=== PATIENT | female | born 1960 | race African-American/Black ===

== ENCOUNTER → 2017-02-02 | Outpatient (CLI) | payer BC ==
--- NOTE | 2017-02-02 16:37 | RADRPT ---
PROCEDURE: Left knee radiographs. CLINICAL INDICATION: Left knee pain. TECHNIQUE: Four views. Weight bearing. Frontal, lateral, oblique, and patellar view. COMPARISON: No prior studies are available for comparison. FINDINGS: There is no fracture or dislocation. The soft tissues are normal. There are degenerative changes with osteophytes arising from all 3 joint compartment margins. There is medial joint compartment narrowing, subarticular sclerosis, and mild deformity. There is no lytic or blastic lesion. There is no radiopaque foreign body. IMPRESSION: 1. Moderate to severe degenerative changes of the left knee. 2. No acute abnormality. RPTAT: QQ .Nando Woods MD, MD Date Time Electronically viewed and signed by .Nando Woods MD, on 02/02/2017 16:37 .R/
== END | disposition home or self-care (01) ==
LOC: HKI 14:26
PROVIDERS: ATTEND Orthopaedic Surgery
DX: M25.562 Pain in left knee (principal); M17.12 Unilateral primary osteoarthritis, left knee
CPT/HCPCS: 73564; G0463

== ENCOUNTER → 2017-02-18 | Outpatient (CLI) | payer BC | END | disposition home or self-care (01) | LOC: HKI 08:54 | PROVIDERS: ATTEND Orthopaedic Surgery | DX: M25.562 Pain in left knee (principal); S82.135A Nondisplaced fracture of medial condyle of left tibia, initial encounter for closed fracture | CPT/HCPCS: G0463 ==

== ENCOUNTER → 2017-03-18 | Outpatient (CLI) | payer BC ==
--- NOTE | 2017-03-18 10:20 | RADRPT ---
PROCEDURE: XR left knee. CLINICAL INDICATION: Knee pain TECHNIQUE: AP weightbearing, PA weightbearing, lateral weightbearing and sunrise views are availab le for review. COMPARISON: 02/02/2017 FINDINGS: There is moderate to severe osteoarthrosis involving the medial tibial femoral compartment and moder ate osteoarthrosis involving the lateral tibial femoral compartment and the patellofemoral compartme nt. This is associated with joint space narrowing, subchondral sclerosis and osteophytosis. There is otherwise normal mineralization, architecture and alignment. No fractures are identified. No osseous lesions are identified. The soft tissues are unremarkable. IMPRESSION: Moderate to severe osteoarthrosis involving the medial tibial femoral compartment and moderate osteo arthrosis involving the lateral tibial femoral compartment and the patellofemoral compartment. RPTAT: HGDB .Jonathan Rebollar MD, Date Time Electronically viewed and signed by .Jonathan Rebollar MD, on 03/18/2017 10:19 .B/
== END | disposition home or self-care (01) ==
LOC: HKI 09:17
PROVIDERS: ATTEND Orthopaedic Surgery
DX: M25.562 Pain in left knee (principal); S82.135A Nondisplaced fracture of medial condyle of left tibia, initial encounter for closed fracture
CPT/HCPCS: 73564; G0463

== ENCOUNTER → 2017-04-15 | Outpatient (CLI) | payer BC ==
--- NOTE | 2017-04-15 13:58 | RADRPT ---
PROCEDURE: XR left knee. CLINICAL INDICATION: Knee pain TECHNIQUE: AP weightbearing, PA weightbearing, lateral weightbearing and sunrise views are availab le for review. COMPARISON: 03/18/2017 FINDINGS: There is moderate to severe osteoarthrosis involving the medial tibial femoral compartment and moder ate osteoarthrosis involving the lateral tibial femoral compartment and the patellofemoral compartme nt. This is associated with joint space narrowing, subchondral sclerosis and osteophytosis. There is otherwise normal mineralization, architecture and alignment. No fractures are identified. N o osseous lesions are identified. The soft tissues are unremarkable. IMPRESSION: Moderate to severe osteoarthrosis involving the medial tibial femoral compartment and moderate osteo arthrosis involving the lateral tibial femoral compartment and the patellofemoral compartment. RPTAT: HGDB .Jonathan Rebollar MD, Date Time Electronically viewed and signed by .Jonathan Rebollar MD, on 04/15/2017 13:57 .B/
== END | disposition home or self-care (01) ==
LOC: HKI 09:32
PROVIDERS: ATTEND Orthopaedic Surgery
DX: M25.562 Pain in left knee (principal); M17.12 Unilateral primary osteoarthritis, left knee; S82.135D Nondisplaced fracture of medial condyle of left tibia, subsequent encounter for closed fracture with routine healing
CPT/HCPCS: G0463

== ENCOUNTER → 2017-05-27 | Outpatient (CLI) | payer BC ==
--- NOTE | 2017-05-27 17:32 | RADRPT ---
PROCEDURE: Left knee radiographs. CLINICAL INDICATION: Left knee pain. TECHNIQUE: Four views. Weight bearing. Frontal, lateral, oblique, and patellar view. COMPARISON: 04/15/2017. FINDINGS: There is no fracture or dislocation. The soft tissues are normal. There are degenerative changes with osteophytes arising from all 3 joint compartment margins. There is medial joint compartment narrowing and subarticular sclerosis. There is no lytic or blastic lesion. There is no radiopaque foreign body. IMPRESSION: 1. Moderate degenerative changes of the left knee. 2. No acute abnormality. RPTAT: QQ .Nando Woods MD, MD Date Time Electronically viewed and signed by .Nando Woods MD, on 05/27/2017 17:32 .R/
== END | disposition home or self-care (01) ==
LOC: HKI 09:27
PROVIDERS: ATTEND Orthopaedic Surgery
DX: M25.562 Pain in left knee (principal); M17.12 Unilateral primary osteoarthritis, left knee
CPT/HCPCS: 73564; G0463

== ENCOUNTER → 2017-07-03 | Outpatient (CLI) | payer BC ==
--- NOTE | 2017-07-03 10:31 | PN ---
Date/Time of Note Date/Time of Note DATE: 07/03/17 TIME: 10:28 Outpatient Progress Note HPI DenisePresents today for a follow-up evaluation on her left knee. She is here today for a Monovisc injection to left knee.She denies any fevers or chills. She has tried cortisone in the past without much relief. She has been using some Voltaren gel to apply topically to the left knee as well. She continues to have pain with ambulation as well as at night. She presents today for a Monovisc injection to her left knee. Physical Exam On exam today, she is alert and oriented 4, in no acute distress. She walks with a slight antalgic gait. Exam of left knee demonstrates no effusion. There is no erythema, warmth, pus, or drainage noted. Range of motion is 0130 . Varus valgus forces are stable. Compartments are soft. She is neurovascularly intact distally. Assessment/Plan Assessment: Left knee osteoarthritis Plan: The patient underwent a left knee intra-articular Monovisc injection today without adverse event. I advised her to modify her activity, apply ice, take [id number] anti-inflammatories. She can resume her normal physical activity tomorrow. We will see her back on an as-needed basis. She is to call the office in the meantime if she has any concerns. Procedure Note: The procedure was fully explained to the patient and informed consent was obtained prior to the start of the procedure. The area was prepped and draped in sterile fashion using Betadine. Local anesthesia was achieved using ethyl chloride to anesthetize the superolateral aspect the left knee and 4 cc of Monovisc was injected intra-articularly. Patient tolerated the procedure well. All questions and concerns were addressed at the time of procedure. PIERO PRITCHETT PA-C Jul 03, 2017 10:31
== END | disposition home or self-care (01) ==
LOC: HKI 10:00
PROVIDERS: ATTEND Orthopaedic Surgery
DX: M17.12 Unilateral primary osteoarthritis, left knee (principal)
CPT/HCPCS: 20610; J7327

== ENCOUNTER → 2017-07-31 | Outpatient (CLI) | payer BC ==
--- NOTE | 2017-08-01 12:09 | RADRPT ---
PROCEDURE: XR Knees. CLINICAL INDICATION: Bilateral knee pain. TECHNIQUE: Total of six views. Frontal, oblique, and lateral views of both knees. COMPARISON: No prior study is available for comparison. FINDINGS: There is no fracture or dislocation. The soft tissues are normal. There are degenerative changes of both knees with osteophytes arising from all 3 joint compartment m argins bilaterally. There is left medial knee joint compartment narrowing and subarticular sclerosis .. There is no lytic or blastic lesion. There is no radiopaque foreign body. IMPRESSION: 1. Mild degenerative changes of the right knee. 2. Moderate degenerative changes of the left knee. RPTAT: QQ .Nando Woods MD, MD Date Time Electronically viewed and signed by .Nando Woods MD, MD on 08/01/2017 12:08 .R/
--- NOTE | 2017-08-03 14:21 | HKNOTE ---
DATE OF SERVICE: 07/31/2017 CHIEF COMPLAINT: Bilateral knee pain. HISTORY OF THE PRESENT ILLNESS: Nat Card is a 56-year-old female who is here for evaluation of b ilateral knee pain, right worse than left. The patient has a history of osteoarthritis. She also h ad a nondisplaced fracture of her left tibial plateau that seems to be progressing well. She has matthew d injections in her knees in the past with reasonable relief. At this time, the patient is concerne d because her knee pain is preventing her from walking for any length of time. 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 The pa angeli is here for further management. She denies fever or chills. There is no history of recent tra tracey. PAST MEDICAL HISTORY: Significant for high blood pressure and increased cholesterol. She takes anti -inflammatory medications at times. ALLERGIES: NO KNOWN DRUG ALLERGIES. REVIEW OF SYSTEMS: Negative for chest pain, shortness of breath, nausea, vomiting, or diarrhea. Po sitive for bilateral knee pain, stiffness and swelling. PHYSICAL EXAMINATION: This shows a pleasant female. She is awake, alert and oriented. She walks w ith a slight limp on her right side. The patient is breathing comfortably. Vital signs are stable. Examination of the right knee shows mild swelling, medial joint line tenderness, range of motion 5 to 120 with crepitus. There is no instability and no neurovascular deficit. The left knee shows e vidence of previous arthroscopy. Mild swelling is noted and range of motion is 5 to 120 with crepit us. X-rays of both knees were reviewed and showed advanced osteoarthritis of the knees, worse on th e left compared to the right. There is evidence of narrowing of the joint space, subchondral scler osis and osteophyte formation. ASSESSMENT AND PLAN: A 56-year-old female with bilateral knee osteoarthritis. She has chronic pain that is interfering with her activities. The right knee pain has become quite painful and was inje cted today using sterile precautions. Given the bilateral knee pain that is significant she will co ntinue to be off load for the next 6 weeks. She will follow up in 6 weeks for further evaluation. The patient understands that definitive treatment may involve surgical treatment. Dictated By: IRIS VELASQUEZ MD UB/SAMANTHA Conf#: [id number] [facility]#: [id number]
--- NOTE | 2017-08-03 14:24 | HKNOTE ---
DATE OF SERVICE: 07/31/2017 CHIEF COMPLAINT: Right knee pain. HISTORY OF PRESENT ILLNESS: The patient is a 56-year-old female who is here for evaluation of bilat eral knee pain, right side worse than the left. The right knee pain has been ongoing for a number o f months. She has had previous treatments with injections and physical therapy with partial relief. 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 She recently had a left tibial plateau fracture that is irma vering well; however, the patient continues to have pain related to osteoarthritis of her left knee. She is here for further management and is requesting an injection in her right knee. PAST HISTORY: Significant for high blood pressure and high cholesterol. MEDICATIONS: Include: 1. Lisinopril. 2. Atorvastatin. 3. Ibuprofen. 4. [place]. FAMILY HISTORY: Negative for major medical problems. SOCIAL HISTORY: Patient denies smoking or alcohol use. ALLERGIES: NONE. REVIEW OF SYSTEMS: Negative for chest pain, shortness of breath, nausea, vomiting, diarrhea and pos itive for bilateral knee pain. PHYSICAL EXAMINATION: VITAL SIGNS: Stable. GENERAL: Pleasant female. She is having difficulty with getting up from a sitting position. She i s breathing comfortably. HEART: Regular rate and rhythm. EXTREMITIES: Examination of the right knee shows a mild varus deformity with medial joint line tend erness. There is mild swelling. Range of motion is 5 to 115 degrees. There is no instability and no neurovascular deficits. On the left side, the patient has mild medial joint line tenderness as w ell with 5 to 120 degrees of motion and no instability. IMAGING: X-rays of the knees were done today and show moderate osteoarthritis with narrowing of the joint space and osteophyte formation mainly in the medial and patellofemoral compartments. The tib ial plateau fracture on the left side appears to be healed. ASSESSMENT AND PLAN: A 56-year-old female with osteoarthritis of her knees. The right side is quit e symptomatic at this time. Using sterile precautions, the right knee was injected with 40 mg of De po-Medrol, using lidocaine as local anesthesia. At this time, the patient is advised to stay off wo rk for the next few weeks while she is recovering from the knee pain. She will continue with ice an d anti-inflammatory medications and follow up in 6 weeks for further management. The patient unders tands that definitive treatment may involve surgical treatment; however, she is not ready for any wilkins rgery at this time. Dictated By: IRIS ASTUDILLO/SAMANTHA Conf#: [id number] DID#: [id number]
== END | disposition home or self-care (01) ==
LOC: HKI 13:33
PROVIDERS: ATTEND Orthopaedic Surgery
DX: M17.0 Bilateral primary osteoarthritis of knee (principal); I10 Essential (primary) hypertension; E78.00 Pure hypercholesterolemia, unspecified
CPT/HCPCS: 20610; 73562; G0463; J1030

== ENCOUNTER → 2017-09-11 | Outpatient (CLI) | payer BC ==
--- NOTE | 2017-09-11 14:21 | PN ---
Date/Time of Note Date/Time of Note DATE: 09/11/17 TIME: 14:15 Outpatient Progress Note Chief Complaint Bilateral knee pain HPI 57-year-old female presents today for follow-up regarding bilateral knee pain. She was last seen on 07/31/2017 where cortisone injection to the right knee secondary to osteoarthritis was performed. Since the cortisone injection, patient reports 70% relief. She has had increase in functionality to the right knee. Patient remains active mostly with gym exercise which involves aerobics class. She denies any falls or trauma since she was last seen. Patient also reports 70% relief to the left knee. Patient has had a recent tibial plateau fracture which continues to heal. On 07/03/2017 patient had hyaluronic acid injection to the left knee which continues with ongoing relief. Injection was performed by physician human resources benefits assistant to Dr. Vincent. Continues with aching primarily with weightbearing activities throughout the day but since gel injection, pain has been minimal and well-controlled. Review of Systems Const: No Fever, no chills, no Fatigue, normal appetite, no diaphoresis. Resp: No SOB, no wheezing, no chest pain. CV: No chest pain, no palpitaions, no KELLY. Physical Exam Blood pressure is 125/78, temperature is 98.1, pulse of 71, respiratory rate is 12, height is 5 foot 6 inches, weight is 170 pounds General Appearance: well-developed, well-nourished, in no acute distress. Right knee: Positive patellofemoral crepitus with range of motion. Patient is able to fully extend the knee actively with flexion up to 130. Normal sensory examination to light touch. 5/5 strength on resistance. Negative Corazon's test. Negative Cathie's test. Left knee: Full range of motion at 0-130 today. Positive patellofemoral crepitus. Normal sensory examination to light touch. 5/5 strength on resistance. Gait is normal but mildly antalgic bilaterally.Negative Corazon's test today. Negative Cathie's test. Assessment/Plan * At this stage patient may follow-up in the next couple months for repeat evaluation. * Anti-inflammatories as needed for pain. 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 Patient may remain off work until 3 months after injection with repeat evaluation and determination whether extension of disability may be performed. Patient was made aware however, given extent of degenerative changes that surgical intervention may be warranted and consideration of possible surgical intervention should be had. Patient states understanding and compliance. * Follow-up in a couple months for repeat evaluation if needed. * Continue active lifestyle recommendations in regards to stationary bicycle, aqua therapy, elliptical machine and other activities that provide friction less motion with less tension and stress on the joints is recommended. Activities such as running, jumping and jogging may create increased stress to the knees given degenerative changes and patient states understanding. Dr. Blanchard was present for examination and agrees with plan. DAWIT PORRAS PA-C Sep 11, 2017 14:21
== END | disposition home or self-care (01) ==
LOC: HKI 13:17
PROVIDERS: ATTEND Orthopaedic Surgery
DX: M25.562 Pain in left knee (principal); M25.561 Pain in right knee

== ENCOUNTER → 2017-11-06 | Outpatient (CLI) | END | disposition home or self-care (01) ==

== ENCOUNTER → 2017-12-04 | Outpatient (CLI) | END | disposition home or self-care (01) ==